=== PATIENT | female | born 1990 | race Caucasian/White ===

== ENCOUNTER 2018-02-10 14:09 | Emergency (ER) | payer OTHER ==
[~2018-02-10] VITALS: Ht 162.6 cm; Wt 94.3 kg
[2018-02-10] MEDS ORDERED: KETOROLAC TROMETHAMINE 30 MG/ML VIAL IM STA (14:19)
[2018-02-10] MEDS ORDERED: ONDANSETRON HCL 4 MG ORAL DISINTEGRATING TAB PO ONE (14:30)
[2018-02-10] MEDS ORDERED: ACETAMINOPHEN 325 MG TAB PO ONE (14:30)
[2018-02-10] MEDS ORDERED: PREDNISONE 10 MG TAB PO ONE (14:30)
--- NOTE | 2018-02-10 14:58 | Diagnostic Imaging Report ---
EXAM: L SPINE 2-3 VEWS - [facility] DATE: 02/10/2018 12:00 AM INDICATION: Low back pain. No injury. COMPARISON: None FINDINGS: Vertebral heights and disc spaces maintained. No significant degenerative changes. IMPRESSION: No acute findings. Signed by: Dr. Zaid Wolfe MD on 02/10/2018 2:54 PM
[2018-02-10 15:10] VITALS: BP 130/70
== END 2018-02-10 15:12 | disposition home or self-care (01) ==
LOC: FSED 14:09
DX: M54.41 Lumbago with sciatica, right side (principal); M54.16 Radiculopathy, lumbar region; M51.26 Other intervertebral disc displacement, lumbar region; F17.210 Nicotine dependence, cigarettes, uncomplicated
CPT/HCPCS: 72100; 81003; 96372; 99283; J1885

== ENCOUNTER 2018-02-14 08:42 | Emergency (ER) | payer OTHER ==
[~2018-02-14] VITALS: Ht 162.6 cm; Wt 94.3 kg
[2018-02-14] MEDS ORDERED: KETOROLAC TROMETHAMINE 30 MG/ML VIAL IV STA (09:14)
[2018-02-14] MEDS ORDERED: ONDANSETRON HCL INJ 2 MG/ML VIAL IV STA (09:14)
--- NOTE | 2018-02-14 11:43 | Diagnostic Imaging Report ---
EXAM: CT Abdomen and Pelvis WITH contrast INDICATION: Right lower quadrant abdominal pain radiating to the back COMPARISON: Lumbar spine x-ray 02/10/2018 TECHNIQUE: Abdomen and pelvis were scanned utilizing a multidetector helical scanner from the lung base to the pubic symphysis after administration of IV contrast. Coronal and sagittal reformations were obtained. Routine protocol was performed. Scan was performed when during portal venous phase. IV CONTRAST: 100 mL of Isovue-300 ORAL CONTRAST: None RADIATION DOSE: Total DLP: 792.6 mGy*cm Estimated effective dose: (DLP x 0.015 x size factor) mSv COMPLICATIONS: None FINDINGS: LINES and TUBES: None. LOWER THORAX: Unremarkable HEPATOBILIARY: No focal hepatic lesions. No biliary ductal dilation. GALLBLADDER: No radio-opaque stones or sludge. No wall thickening. SPLEEN: No splenomegaly. PANCREAS: No focal masses or ductal dilatation. ADRENALS: No adrenal nodules KIDNEYS/URETERS: Kidneys enhance symmetrically. No hydronephrosis. No cystic or solid mass lesions. 3 mm nonobstructing calcified stone in the inferior pole of the right kidney on series 2, image 40. 2 mm nonobstructing calcified stone in the inferior pole of the left kidney better seen on coronal image 54. GI TRACT: No abnormal distention, wall thickening, or evidence of bowel obstruction. Appendix is not visualized but no inflammatory changes in the right lower quadrant.. PELVIC ORGANS/BLADDER: 2.5 cm round low-attenuation structure within the left side of the uterus with hyperdense ring may represent a partially calcified fibroid. The urinary bladder is partially collapsed. No calcified stones within the urinary bladder or ureters. LYMPH NODES: No lymphadenopathy. VESSELS: Unremarkable. PERITONEUM / RETROPERITONEUM: No free air or fluid. BONES: Unremarkable. SOFT TISSUES: Unremarkable. IMPRESSION: Nonobstructing bilateral nephrolithiasis, measuring 3 mm on the right and 2 mm on the left. No calcified stones within the ureters or urinary bladder. Signed by: Dr. Renetta Cho M.D. on 02/14/2018 11:40 AM
[2018-02-14] MEDS ORDERED: MORPHINE SULFATE INJ 4 MG/ML INJ IV STA (11:53)
[2018-02-14] MEDS ORDERED: ZOFRAN4 MG SL (12:13)
[2018-02-14] MEDS ORDERED: MOTRIN200 MG PO (12:13)
[2018-02-14 12:31] VITALS: BP 121/63
== END 2018-02-14 12:39 | disposition home or self-care (01) ==
LOC: FSED 08:42
DX: R10.31 Right lower quadrant pain (principal); R11.0 Nausea; F17.210 Nicotine dependence, cigarettes, uncomplicated
CPT/HCPCS: 74177; 80053; 81003; 85025; 96374; 96375; 99284; J1885; J2270; J2405

== ENCOUNTER 2018-02-15 04:55 | Emergency (ER) | payer OTHER ==
[~2018-02-15] VITALS: Ht 162.6 cm; Wt 94.3 kg
[~2018-02-15 04:55] MED LIST: MOTRIN200 MG PO; ZOFRAN4 MG SL
[2018-02-15] MEDS ORDERED: ONDANSETRON HCL INJ 2 MG/ML VIAL IV STA (05:12)
[2018-02-15] MEDS ORDERED: KETOROLAC TROMETHAMINE 30 MG/ML VIAL IV STA (05:12)
[2018-02-15] MEDS ORDERED: SODIUM CHLORIDE 0.9% 1000ML 1,000 ML IV SCH (05:15)
[2018-02-15] MEDS ORDERED: MORPHINE SULFATE 5 MG/ML VIAL IV ONE (05:15)
[2018-02-15] MEDS ORDERED: SODIUM CHLORIDE 0.9% 1000ML 1,000 ML IV ONE (06:45)
--- NOTE | 2018-02-15 06:48 | Diagnostic Imaging Report ---
EXAM: CT Abdomen and Pelvis WITHOUT contrast INDICATION: Right upper quadrant pain COMPARISON: CT abdomen and pelvis with contrast on 02/14/2018. TECHNIQUE: Abdomen and pelvis were scanned utilizing a multidetector helical scanner from the lung base to the pubic symphysis without administration of IV contrast. Absence of intravenous contrast decreases sensitivity for detection of focal lesions and vascular pathology. Coronal and sagittal reformations were obtained. Stone protocol is performed. IV CONTRAST: None. ORAL CONTRAST: Water RADIATION DOSE: Total DLP: 820.37 mGy*cm Estimated effective dose: (DLP x 0.015 x size factor) mSv COMPLICATIONS: None FINDINGS: LINES and TUBES: None. LOWER THORAX: Unremarkable HEPATOBILIARY: No focal hepatic lesions. No biliary ductal dilation. GALLBLADDER: No radio-opaque stones or sludge. No wall thickening. SPLEEN: No splenomegaly. PANCREAS: No focal masses or ductal dilatation. ADRENALS: No adrenal nodules KIDNEYS/URETERS: No hydronephrosis. No cystic or solid mass lesions. Multiple left punctate nephrolithiasis involving the upper, interpolar and inferior pole of the left kidney and more significantly a 4 mm stone in the inferior renal collecting system of the right kidney GI TRACT: No abnormal distention, wall thickening, or evidence of bowel obstruction. Appendix is normal. PELVIC ORGANS/BLADDER: The uterus is absent. The left ovary measures 7.6 cm in maximum dimension compressing downwards the urinary bladder. LYMPH NODES: No lymphadenopathy. VESSELS: Unremarkable. PERITONEUM / RETROPERITONEUM: There is moderate of amount of free fluid in the pelvis. The fluid is hyperdense measuring 25HU BONES: Unremarkable. SOFT TISSUES: Unremarkable. IMPRESSION: 1. Left ovary measures 7.6 cm compressing the urinary bladder and with evidence of hyperdense pelvic fluid. This finding is suspicious for ovarian torsion with small hemoperitoneum. 2. Transvaginal pelvic ultrasound and surgical consult is recommended. 3. These findings were discussed with Dr. Jones at the time of interpretation on 02/15/2018 at 0640 hours Signed by: Dr. Armen Hilton M.D. on 02/15/2018 6:45 AM
== END 2018-02-15 07:55 | disposition other institution (70) ==
LOC: FSED 04:55
DX: R10.31 Right lower quadrant pain (principal); R10.2 Pelvic and perineal pain; R11.2 Nausea with vomiting, unspecified; N83.512 Torsion of left ovary and ovarian pedicle
CPT/HCPCS: 74176; 80053; 81003; 85025; 99284; J1885; J2270; J2405